=== PATIENT | female | born 1975 | race Asian ===

== ENCOUNTER 2017-08-04 22:06 | Emergency (ER) | payer BC ==
[~2017-08-04] VITALS: Ht 164.3 cm; Wt 65.4 kg
[2017-08-04 22:13] VITALS: Ht 164.3 cm; Wt 65.4 kg
[2017-08-04 22:55] LABS: microscopic required? NO
[2017-08-04 22:58] LABS: BASOPHIL % 0.3 % (0-2); PLATELET COUNT 319 x10^3mcL (130-400); RED CELL DISTRIBUTION WIDTH 12.4 % (11.5-14.5)
[2017-08-04 23:09] LABS: CALCIUM 8.9 mg/dL (8.5-10.1); CARBON DIOXIDE 23.5 mmol/L (21-32); CHLORIDE SERUM 103 mmol/L (98-107); CREATININE SERUM 0.8 mg/dL (0.6-1.0); GFR1 > 60 mL/min; GLUCOSE SERUM 112 mg/dL (74-106); POTASSIUM SERUM 3.5 mmol/L (3.5-5.1); SODIUM SERUM 136 mmol/L (136-145)
[2017-08-04 23:12] LABS: UA SPECIFIC GRAVITY 1.015 (1.005-1.035); urine erythrocyte NEGATIVE (NEGATIVE)
[2017-08-04 23:14] LABS: ALBUMIN 3.8 g/dL (3.4-5.0); ALKALINE PHOSPHATASE 93 U/L (46-116); ALT/SGPT 53 U/L (14-59); AMYLASE 51 U/L (25-115); AST/SGOT 86 U/L (15-37); BILIRUBIN TOTAL 0.5 mg/dL (0.20-1.00); CHOLESTEROL 178 mg/dL (<200); HDL CHOLESTEROL 46 mg/dL (40-60); LIPASE 217 IU/L (73-393); TOTAL PROTEIN, SERUM 7.2 g/dL (6.4-8.2)
[2017-08-05 01:10] VITALS: BP 116/76
== END 2017-08-05 01:10 | disposition home or self-care (01) ==
LOC: ED 22:06
PROVIDERS: Emergency Medicine
DX: D72.829 Elevated white blood cell count, unspecified (principal)
CPT/HCPCS: 83880; J1885; J3490; J7030; Q0092